=== PATIENT | female | born 1975 | race Caucasian/White ===

== ENCOUNTER 2020-12-05 14:20 | Outpatient (CLI) | payer BC, SELFPAY ==
--- NOTE | 2020-12-05 14:39 | MM_ITS ---
WS: [id number] BILATERAL DIGITAL SCREENING MAMMOGRAPHY WITH CAD CLINICAL INFORMATION: SCREENING HISTORY: Screening mammogram. No current complaints. COMPARISON: TECHNIQUE: Bilateral CC and MLO views. FINDINGS: Bilateral breast implants appear mammographically intact. The breasts are composed of heterogeneous fibroglandular density tissue, which can limit the detectio n of small underlying mass lesions. A few punctate and coarse calcifications. No suspicious mass, asy mmetry, calcifications, or architectural distortion. No evidence of malignancy. MM/[place] [id number] IMPRESSION: BI-RADS: 2-Benign FOLLOW UP: 1 Year Follow-up Recommend return to annual screening mammography.
== END 2020-12-05 14:21 | disposition home or self-care (01) ==
LOC: RADSHAW 14:26
PROVIDERS: PCP Family Medicine; Visit Provider Family Medicine
DX: Z12.31 Encounter for screening mammogram for malignant neoplasm of breast (principal)
CPT/HCPCS: 77067

== ENCOUNTER 2022-07-22 12:32 | Outpatient (CLI) | payer BC, SELFPAY ==
--- NOTE | 2022-07-22 12:37 | MM_ITS ---
WS: [id number] BILATERAL SCREENING DIGITAL BREAST MAMMOGRAPHY WITH MACI DISPLACEMENT VIEWS. CAD PERFORMED. HISTORY: Screening. COMPARISON: 12/05/2020 and 07/19/2018 Bilateral craniocaudal and mediolateral oblique views are performed with tomosynthesis and SM. Maci displacement views in CC and MLO projection also performed. Breasts composition: There are scattered areas of fibroglandular density. Implants are intact and retropectoral. There are a few benign-appearing and stable calcifications wit hin each breast. No capsular contraction. No distortion. MM/[place] [id number] IMPRESSION: BI-RADS: 2-Benign FOLLOW-UP: 1 Year Follow-up
== END 2022-07-22 12:33 | disposition home or self-care (01) ==
LOC: RAD 12:35
PROVIDERS: PCP Family Medicine; Visit Provider Family Medicine
DX: Z12.31 Encounter for screening mammogram for malignant neoplasm of breast (principal); Z01.419 Encounter for gynecological examination (general) (routine) without abnormal findings
CPT/HCPCS: 77063; 77067; 87624

== ENCOUNTER → 2023-07-28 14:27 | Outpatient (BNVA) | payer BC, SELFPAY | PROVIDERS: PCP Family Medicine; Visit Provider Nurse Practitioner Women's Health | DX: E03.9 Hypothyroidism, unspecified (principal); Z01.419 Encounter for gynecological examination (general) (routine) without abnormal findings; R53.83 Other fatigue | CPT/HCPCS: 82306; 84443; 87624 ==

== ENCOUNTER 2023-07-30 09:23 | Outpatient (CLI) | payer BC, MEDICAID, SELFPAY ==
--- NOTE | 2023-07-30 09:54 | MM_ITS ---
WS: [id number] BILATERAL SCREENING DIGITAL BREAST MAMMOGRAPHY WITH MACI DISPLACEMENT VIEWS. CAD PERFORMED. HISTORY: SCREENING COMPARISON: 07/22/2022, 12/05/2020 Bilateral craniocaudal and mediolateral oblique views are performed with tomosynthesis and SM. Maci displacement views in CC and MLO projection also performed. Breasts composition: There are scattered areas of fibroglandular density. Implants are intact. No isbell spicious mass or calcification. IMPRESSION: MM/[place] [id number] BI-RADS: 2-Benign FOLLOW-UP: 1 Year Follow-up
== END 2023-07-30 09:24 | disposition home or self-care (01) ==
LOC: RAD 09:23
PROVIDERS: Absent Provider Nurse Practitioner Women's Health; PCP Family Medicine; Visit Provider Nurse Practitioner Women's Health
DX: Z12.31 Encounter for screening mammogram for malignant neoplasm of breast (principal)
CPT/HCPCS: 77063; 77067

== ENCOUNTER → 2023-08-05 08:17 | Outpatient (BNVA) | payer BC, MEDICAID, SELFPAY | PROVIDERS: PCP Family Medicine; Visit Provider Nurse Practitioner Women's Health | DX: R87.618 Other abnormal cytological findings on specimens from cervix uteri (principal) | CPT/HCPCS: 88305 ==

== ENCOUNTER 2024-08-18 10:56 | Outpatient (CLI) | payer BC, SELFPAY ==
--- NOTE | 2024-08-18 11:02 | MM_ITS ---
WS: [id number] BILATERAL SCREENING DIGITAL BREAST MAMMOGRAPHY WITH MACI DISPLACEMENT VIEWS. CAD PERFORMED. HISTORY: SCREENING COMPARISON: 07/30/2023, 07/22/2022 Bilateral craniocaudal and mediolateral oblique views are performed with tomosynthesis and SM. Maci displacement views in CC and MLO projection also performed. Breasts composition: There are scattered areas of fibroglandular density. Implants are intact. Scattered heterogeneity throughout each breast. New focal area of increasing density in the retroareolar LEFT breast measures 7 x 16 mm. This may be a dilated duct. Recommend additional evaluation at this time. There are a few scattered benign calcifications also present. MM/MM scr BI tomosynthesis [id number] IMPRESSION: BI-RADS: 0 - Incomplete: Need additional imaging evaluation. FOLLOW-UP: Need Additional Imaging LEFT breast: Spot compression views (CC and MLO). True ML. Ultrasound to follow if abnormality persists.
== END 2024-08-18 10:57 | disposition home or self-care (01) ==
PROVIDERS: PCP Family Medicine; Referring Provider Nurse Practitioner Women's Health; Visit Provider Family Medicine
DX: Z12.31 Encounter for screening mammogram for malignant neoplasm of breast (principal); R92.323 Mammographic fibroglandular density, bilateral breasts; Z98.82 Breast implant status; R92.333 Mammographic heterogeneous density, bilateral breasts; N63.20 Unspecified lump in the left breast, unspecified quadrant; R92.1 Mammographic calcification found on diagnostic imaging of breast
CPT/HCPCS: 77063; 77067

== ENCOUNTER 2024-08-30 09:41 | Outpatient (CLI) | payer BC, SELFPAY ==
--- NOTE | 2024-08-30 09:48 | MM_ITS ---
WS: [id number] ADDITIONAL VIEWS LEFT MAMMOGRAM WITH DIGITAL BREAST TOMOSYNTHESIS. LEFT breast ultrasound, limited. HISTORY: Asymmetry retroareolar LEFT breast. COMPARISON: 08/18/2024, 07/30/2023 and 07/22/2022 Spot compression views LEFT breast in CC, MLO projections and true ML submitted with digital breast tomosynthesis and SM. Breast composition: There are scattered areas of fibroglandular density. Asymmetry retroareolar becomes much less apparent with additional spot compression views. There are a few small calcifications. Ultrasound will be performed. LEFT breast ultrasound, limited. No soft tissue mass noted in the retroareolar region. Normal appearance of the soft tissues. There are few some ducts that are very slightly prominent but not dilated. No debris within the ducts. MM/MM diag LT tomosynthesis [id number] IMPRESSION: BI-RADS: 2 - Benign. FOLLOW UP: 1 Year Follow-up Retroareolar asymmetry improves with additional imaging.
== END 2024-08-30 09:42 | disposition home or self-care (01) ==
PROVIDERS: PCP Family Medicine; Visit Provider Family Medicine
DX: N64.89 Other specified disorders of breast (principal); R92.323 Mammographic fibroglandular density, bilateral breasts; R92.1 Mammographic calcification found on diagnostic imaging of breast
CPT/HCPCS: 76642; 77061; G0279

== ENCOUNTER 2024-09-19 08:43 | Outpatient (CLI) | payer BC, SELFPAY ==
--- NOTE | 2024-09-19 08:50 | US_ITS ---
WS: [id number] THYROID ULTRASOUND HISTORY: THYROID CYST COMPARISON: None available. Right lobe: 1.4 cm x 0.9 cm x 4.5 cm (w x ap x l). Volume: 2.6 cm3. Normal size and echotexture. No significant are dominant nodules are present. Left lobe: 1.1 cm x 0.7 cm x 4.0 cm (w x ap x l). Volume: 1.5 cm3. Normal size and echotexture. No significant or dominant nodules are present. Isthmus: 0.2 cm. US/US thyroid [id number] IMPRESSION: Normal thyroid ultrasound.
== END 2024-09-19 08:44 | disposition home or self-care (01) ==
LOC: RAD 08:46
PROVIDERS: PCP Family Medicine; Visit Provider Family Medicine
DX: E04.1 Nontoxic single thyroid nodule (principal)
CPT/HCPCS: 76536